=== PATIENT | male | born 1965 | race American Indian/Alaskan Native ===

== ENCOUNTER 2018-06-24 14:49 | Observation (INO) | payer OTHER ==
[2018-06-24 15:35] LABS: Basophils # (Auto) 0.1 K/mm3 (0.0-0.1); Basophils % (Auto) 0.9 % (0.0-1.8); Eosinophils # (Auto) 0.2 K/mm3 (0.0-0.4); Eosinophils % (Auto) 2.3 % (0.0-4.3); Hematocrit 39.8 % (35.5-45.6); Hemoglobin 13.3 gm/dl (11.8-15.2); Lymphocytes # (Auto) 1.7 K/mm3 (1.2-5.4); Lymphocytes % (Auto) 23.1 % (13.4-35.0); Mean Corpuscular HGB Conc 33 % (32-34); Mean Corpuscular Hemoglobin 32 pg (28-32); Mean Corpuscular Volume 96 fl (84-94); Monocytes # (Auto) 0.8 K/mm3 (0.0-0.8); Monocytes % (Auto) 10.3 % (0.0-7.3); Platelet Count 127 K/mm3 (140-440); Red Blood Count 4.14 M/mm3 (3.65-5.03); Red Cell Distribution Width 13.4 % (13.2-15.2)
[2018-06-24 15:43] LABS: INR 0.93 (0.87-1.13)
[2018-06-24 15:44] LABS: Partial Thromboplastin Time 27.2 Sec. (24.2-36.6)
[2018-06-24 15:45] LABS: BUN/Creatinine Ratio 21; Blood Urea Nitrogen 25 mg/dL (9-20); Calcium 9.2 mg/dL (8.4-10.2); Hemolysis Index 0
[2018-06-24] MEDS ORDERED: BABY ASPIRIN PO ONE (17:04)
[2018-06-24] MEDS ORDERED: ZOFRAN IV ONE (17:04)
[2018-06-24] MEDS ORDERED: MORPHINE IV ONE (17:04)
--- NOTE | 2018-06-24 17:09 | Emergency Department Report ---
Blank Doc - Documentation Documentation: Patient is 52 years old male with history of chronic lymphocytic leukemia status post stem cell transplant in 2014, history of pericarditis. Patient presented to the ER complaining of substernal chest pain started last night, he described his pain as dull aching increase with taking a deep breath. EKG showed bigeminy. Differential diagnoses include acute coronary syndrome, pulmonary embolism, pericarditis. Patient will be best served in our main ED.
--- NOTE | 2018-06-24 18:02 | XRay Report ---
FINAL REPORT EXAM: XR CHEST ROUTINE 2V HISTORY: chest pain TECHNIQUE: Frontal and lateral chest radiographs. PRIORS: None. FINDINGS: The cardiomediastinal silhouette is normal. No focal consolidation. No pleural effusion. No pneumothorax. No acute osseous abnormality. IMPRESSION: No acute cardiopulmonary process.
[2018-06-24] MEDS ORDERED: NACL 0.9% 500 ML 500 ML IV ONE (21:27)
[2018-06-24] MEDS ORDERED: NITROSTAT SL PRN (21:27)
--- NOTE | 2018-06-24 21:41 | Emergency Department Report ---
ED Chest Pain HPI - General Chief Complaint: Chest Pain Stated Complaint: CHEST PAIN Time Seen by Provider: 06/24/18 17:00 Source: patient, RN notes reviewed Mode of arrival: Ambulatory Limitations: No Limitations - History of Present Illness Initial Comments: This is a 52-year-old male who is unknown to this provider previously. Primary care DrMaria Eugenia: Rianna David Oncology: Dr. Tres rodriguez Past medical history includes leukemia, pericarditis, stem cell transplant, currently on immune modulating therapy. Patient presents to the ER with complaint of central chest pain, which has been present for 3 days, he reports the pain does not radiate to the back, arms or neck, there is no vomiting, diaphoresis, shortness of breath. He reports the pain increases with deep breathing and leaning forward, and laying down. He denies leg swelling, leg pain, recent travel, cocaine, aspirin, and he indicates that his father had heart disease in his late 50s. MD Complaint: chest pain -: Gradual Onset: during rest Pain Location: substernal Pain Radiation: none Severity: mild Severity scale (0 -10): 7 Quality: tightness Consistency: intermittent Improves With: rest Worsens With: inspiration re: denies: nausea, vomting, diaphoresis, dyspnea, sense of impending doom Aspirin use within the Past 7 Days: (0) No - Related Data On Oral Contraceptives: No Previous Rx's Medication Instructions Recorded Last Taken Type Acetaminophen [Tylenol Arthritis] 650 mg PO Q6HR PRN #30 tablet.er 06/25/18 Unknown Rx Aspirin [Aspirin BABY CHEW TAB] 81 mg PO QDAY #30 tab.chew 06/25/18 Unknown Rx Allergies Allergy/AdvReac Type Severity Reaction Status Date / Time chloroquine Allergy Hives Verified 06/24/18 15:04 Sulfa (Sulfonamide Allergy Rash Verified 06/24/18 15:04 Antibiotics) Heart Score - HEART Score History: Slightly suspicious EKG: Non-specific Age: 45-65 Risk factors: 1-2 risk factors Troponin: < normal limit HEART Score: 3 - Critical Actions Critical Actions: 0-3 pts:0.9-1.7%risk of adverse cardiac event.Candidate for discharge ED Review of Systems ROS: Stated complaint: CHEST PAIN Other details as noted in HPI Constitutional: denies: diaphoresis Eyes: denies: eye discharge ENT: denies: epistaxis Respiratory: denies: shortness of breath Cardiovascular: chest pain Gastrointestinal: denies: vomiting Genitourinary: as per HPI Musculoskeletal: as per HPI. denies: back pain Skin: denies: lesions Neurological: denies: weakness Psychiatric: anxiety ED Past Medical Hx - Past Medical History Previous Medical History?: Yes Hx of Cancer: Yes (leukemia tx w/chemo, remission 01/2018) Additional medical history: pericarditis 2013 - Surgical History Past Surgical History?: Yes Additional Surgical History: stem cell transplant 08/31/2014 - Social History Smoking Status: Never Smoker Substance Use Type: Alcohol - Medications Home Medications: Home Medications Medication Instructions Recorded Confirmed Last Taken Type Acetaminophen [Tylenol Arthritis] 650 mg PO Q6HR PRN #30 tablet.er 06/25/18 Unknown Rx Aspirin [Aspirin BABY CHEW TAB] 81 mg PO QDAY #30 tab.chew 06/25/18 Unknown Rx ED Physical Exam - General Limitations: No Limitations General appearance: alert, in no apparent distress - Head Head exam: Present: atraumatic, normocephalic - Eye Eye exam: Present: normal appearance, EOMI. Absent: nystagmus - ENT ENT exam: Present: normal exam, normal orophraynx, mucous membranes moist, normal external ear exam - Neck Neck exam: Present: normal inspection - Respiratory Respiratory exam: Present: normal lung sounds bilaterally. Absent: respiratory distress - Cardiovascular Cardiovascular Exam: Present: regular rate, normal rhythm, normal heart sounds. Absent: bradycardia, tachycardia, irregular rhythm, systolic murmur, diastolic murmur, rubs, gallop - GI/Abdominal GI/Abdominal exam: Present: soft, normal bowel sounds, other (there is no right upper quadrant tenderness. There is a negative Solis sign. There is negative Rovsing sign.). Absent: distended, tenderness, guarding, rebound, rigid, pulsatile mass - Rectal Rectal exam: Present: deferred - Extremities Exam Extremities exam: Present: normal inspection (2+ pulses noted in the bilateral upper, lower extremities. Compartments soft. No long bony tenderness. The pelvis is stable.), full ROM, normal capillary refill, other (there is no palpable cord. This is negative Homans sign.). Absent: pedal edema, joint swelling, calf tenderness - Back Exam Back exam: Present: normal inspection, full ROM. Absent: tenderness, CVA tenderness (R), paraspinal tenderness, vertebral tenderness - Neurological Exam Neurological exam: Present: alert, oriented X3, CN II-XII intact, normal gait, other (Extraocular movements intact. Tongue midline. No facial droop. Facial sensation intact to light touch in the V1, V2, V3 distribution bilaterally. 5 and 5 strength in 4 extremities.. Sensation is intact to light touch in 4 extremities.). Absent: motor sensory deficit - Psychiatric Psychiatric exam: Present: normal affect, normal mood - Skin Skin exam: Present: warm, dry, intact, normal color. Absent: rash ED Course Vital Signs 06/24/18 06/24/18 06/25/18 15:04 21:10 00:05 Temperature 99.6 F Pulse Rate 55 L 68 57 L Respiratory 18 17 17 Rate Blood Pressure 131/71 Blood Pressure 141/65 [Right] O2 Sat by Pulse 99 99 99 Oximetry 06/25/18 06/25/18 06/25/18 00:41 00:43 01:38 Temperature 99.6 F Pulse Rate 56 L 69 Respiratory 20 Rate Blood Pressure 141/65 Blood Pressure 112/63 [Right] O2 Sat by Pulse 96 Oximetry - Reevaluation(s) Reevaluation #1: 06/25/18 01:38 Patient has now changed his mind, has been having shaking chills, rectal temperature has been requested, and patient request to be admitted for cardiac risk stratification. Patient's did not feel comfortable going home to follow-up. The Hospital physician is paged to arrange admission. Reevaluation #2: 06/25/18 02:00 Dr Yuki Negron accepts to the medical service for cardiac risk stratification TOMI score - Tomi Score Age > 65: (0) No Aspirin use within the Past 7 Days: (0) No 3 or more CAD Risk Factors: (0) No 2 or more Angina events in past 24 hrs: (0) No Known CAD with more than 50% Stenosis: (0) No Elevated Cardiac Markers: (0) No ST Deviation Greater than 0.5mm: (0) No TOMI Score: 0 ED Medical Decision Making - Lab Data Result diagrams: 06/24/18 15:17 06/24/18 15:17 Vital Signs 06/24/18 15:04 Temperature 99.6 F Pulse Rate 55 L Respiratory 18 Rate Blood Pressure 131/71 O2 Sat by Pulse 99 Oximetry Lab Results 06/24/18 06/24/18 06/24/18 Range/Units 15:17 15:17 15:17 WBC 7.4 (4.5-11.0) K/mm3 RBC 4.14 (3.65-5.03) M/mm3 Hgb 13.3 (11.8-15.2) gm/dl Hct 39.8 (35.5-45.6) % MCV 96 H (84-94) fl MCH 32 (28-32) pg MCHC 33 (32-34) % RDW 13.4 (13.2-15.2) % Plt Count 127 L (140-440) K/mm3 Lymph % (Auto) 23.1 (13.4-35.0) % [place] % (Auto) 10.3 H (0.0-7.3) % Eos % (Auto) 2.3 (0.0-4.3) % Baso % (Auto) 0.9 (0.0-1.8) % Lymph # 1.7 (1.2-5.4) K/mm3 [place] # 0.8 (0.0-0.8) K/mm3 Eos # 0.2 (0.0-0.4) K/mm3 Baso # 0.1 (0.0-0.1) K/mm3 Seg Neutrophils % 63.4 (40.0-70.0) % Seg Neutrophils # 4.7 (1.8-7.7) K/mm3 PT 12.9 (12.2-14.9) Sec. INR 0.93 (0.87-1.13) APTT 27.2 (24.2-36.6) Sec. D-Dimer (0-234) ng/mlDDU Sodium 139 (137-145) mmol/L Potassium 4.8 (3.6-5.0) mmol/L Chloride 98.4 (98-107) mmol/L Carbon Dioxide 29 (22-30) mmol/L Anion Gap 16 mmol/L BUN 25 H (9-20) mg/dL Creatinine 1.2 (0.8-1.5) mg/dL Estimated GFR > 60 ml/min BUN/Creatinine Ratio 21 % Glucose 87 (75-100) mg/dL Calcium 9.2 (8.4-10.2) mg/dL Troponin T < 0.010 (0.00-0.029) ng/mL NT-Pro-B Natriuret Pep (0-900) pg/mL 06/24/18 06/24/18 06/24/18 Range/Units 15:17 15:17 19:22 WBC (4.5-11.0) K/mm3 RBC (3.65-5.03) M/mm3 Hgb (11.8-15.2) gm/dl Hct (35.5-45.6) % MCV (84-94) fl MCH (28-32) pg MCHC (32-34) % RDW (13.2-15.2) % Plt Count (140-440) K/mm3 Lymph % (Auto) (13.4-35.0) % [place] % (Auto) (0.0-7.3) % Eos % (Auto) (0.0-4.3) % Baso % (Auto) (0.0-1.8) % Lymph # (1.2-5.4) K/mm3 [place] # (0.0-0.8) K/mm3 Eos # (0.0-0.4) K/mm3 Baso # (0.0-0.1) K/mm3 Seg Neutrophils % (40.0-70.0) % Seg Neutrophils # (1.8-7.7) K/mm3 PT (12.2-14.9) Sec. INR (0.87-1.13) APTT (24.2-36.6) Sec. D-Dimer 240.73 H (0-234) ng/mlDDU Sodium (137-145) mmol/L Potassium (3.6-5.0) mmol/L Chloride (98-107) mmol/L Carbon Dioxide (22-30) mmol/L Anion Gap mmol/L BUN (9-20) mg/dL Creatinine (0.8-1.5) mg/dL Estimated GFR ml/min BUN/Creatinine Ratio % Glucose (75-100) mg/dL Calcium (8.4-10.2) mg/dL Troponin T < 0.010 (0.00-0.029) ng/mL NT-Pro-B Natriuret Pep 85.84 (0-900) pg/mL 07/24/18 Range/Units 22:44 WBC (4.5-11.0) K/mm3 RBC (3.65-5.03) M/mm3 Hgb (11.8-15.2) gm/dl Hct (35.5-45.6) % MCV (84-94) fl MCH (28-32) pg MCHC (32-34) % RDW (13.2-15.2) % Plt Count (140-440) K/mm3 Lymph % (Auto) (13.4-35.0) % [place] % (Auto) (0.0-7.3) % Eos % (Auto) (0.0-4.3) % Baso % (Auto) (0.0-1.8) % Lymph # (1.2-5.4) K/mm3 [place] # (0.0-0.8) K/mm3 Eos # (0.0-0.4) K/mm3 Baso # (0.0-0.1) K/mm3 Seg Neutrophils % (40.0-70.0) % Seg Neutrophils # (1.8-7.7) K/mm3 PT (12.2-14.9) Sec. INR (0.87-1.13) APTT (24.2-36.6) Sec. D-Dimer (0-234) ng/mlDDU Sodium (137-145) mmol/L Potassium (3.6-5.0) mmol/L Chloride (98-107) mmol/L Carbon Dioxide (22-30) mmol/L Anion Gap mmol/L BUN (9-20) mg/dL Creatinine (0.8-1.5) mg/dL Estimated GFR ml/min BUN/Creatinine Ratio % Glucose (75-100) mg/dL Calcium (8.4-10.2) mg/dL Troponin T < 0.010 (0.00-0.029) ng/mL NT-Pro-B Natriuret Pep (0-900) pg/mL - EKG Data -: EKG Interpreted by [place] - EKG Data When compared to previous EKG there are: previous EKG unavailable 06/25/18 01:07 EKG #1 shows sinus bradycardia, 57 bpm, premature ventricular contraction, normal axis, normal intervals, not a STEMI. EKG #2 appears to be unchanged, shows sinus bradycardia. EKG #3 is unchanged, shows high left ventricular voltage. - Radiology Data Radiology results: report reviewed, image reviewed Print Report Referring Physician: RALPH MALIK Patient Name: INOCENCIO HANSEN Date of : 1965 Sex: Male Report Date: 2018-06-24 Report Status: Finalized Findings [facility] [address] [place] [address] Cat Scan Report Signed Patient: INOCENCIO HE MR#: [id number] : 1965 Acct:[id number] Age/Sex: 52 / M ADM Date: 06/24/18 Loc: ED Attending Dr: Ordering Physician: RALPH MALIK MD Date of Service: 06/24/18 Procedure(s): CT angio chest Accession Number(s): [id number] cc: RALPH MALIK MD FINAL REPORT PROCEDURE: CT ANGIO CHEST TECHNIQUE: Computerized tomographic angiography of the chest was performed during the IV injection of iodinated nonionic contrast including image processing. The image data was postprocessed using 2-dimensional multiplanar reformatted (MPR) and 3-dimensional (MIP and/or volume rendered) techniques. HISTORY: cp sob. Evaluate pulmonary embolus. COMPARISON: No prior studies are available for comparison. FINDINGS: Pulmonary outflow tract, right and left main pulmonary arteries and their proximal branches: Clear, no filling defects seen to suggest pulmonary embolus. Pericardium: No evidence of pericardial effusion. Thoracic aorta: No evidence of aneurysmal dilatation or dissection. Coronary arteries: Are unremarkable. Mediastinum and hilar regions: Nonspecific subcentimeter lymph nodes are visualized. No pathologically enlarged lymph nodes or masses are identified. Lung Mccarthy: Small amount of patchy alveolar density present in the posterior costophrenic angles. There also slight asymmetry with increased density anterior medially in the left lung base. No dense consolidations effusions or masses are seen. Upper abdomen: Several moderate to large gallstones are seen within the gallbladder. These are noncalcified. Cholesterol gallstones are suspected. The upper abdomen is otherwise unremarkable. Other: No acute bony abnormalities are visualized. IMPRESSION: No evidence of pulmonary embolus. Small amount of basilar atelectasis suspected. No dense consolidations are seen. This is mildly asymmetric with slightly greater density also visualized anterior medially in the left lower lobe inferior to the left hilum. Subsegmental infiltrate needs clinical exclusion. Cholelithiasis. Moderate to large gallstones visualized within the gallbladder. Transcribed By: URSULA Dictated By: MIKAYLA DELAROSA MD Electronically Authenticated By: MIKAYLA DELAROSA MD Signed Date/Time: 06/24/182302 DD/ 02 - Medical Decision Making Differential diagnosis, including but not limited to: Acute coronary syndrome, pericarditis, myocarditis, pleuritis, pneumonia, pulmonary embolus Assessment and plan: 52-year-old male with chest pain that is primarily pleuritic and positional. Low risk by well's criteria, d-dimer elevated, CT scan of the chest is negative for pneumonia, pneumothorax, pulmonary embolus. There is no right upper quadrant tenderness, CT scan showed gallbladder stones which are asymptomatic and likely incidental. Troponin is negative multiple times, EKG essentially unremarkable 3 without evidence of STEMI. Patient is at low risk for major adverse cardiac event. I had an extensive discussion with the patient regarding the various options for cardiac risk stratification. I offer the patient hospital admission if he felt like it to get a nuclear stress test or exercise stress test, however I did also indicate that it would be reasonable to follow up with outpatient cardiology within the next couple days to complete his risk stratification. The patient endorses that he must refers to follow-up as an outpatient, and indicates that he is reliable to follow-up as an outpatient. He understands this risk for major adverse cardiac event at this time. Through shared decision making, we agreed to have the patient closely follow up as outpatient with local cardiology to complete his cardiac risk stratification. Critical care attestation.: If time is entered above; I have spent that time in minutes in the direct care of this critically ill patient, excluding procedure time. ED Disposition Clinical Impression: Chest pain Disposition: 09 OP ADMIT IP TO THIS HOSP Is pt being admited?: Yes Does the pt Need Aspirin: Yes Condition: Good Instructions: Chest Pain (ED) Additional Instructions: Take the pain medication as needed/directed. Follow up with any of the local listed cardiology groups within the next 3-4 days to have an outpatient stress test/outpatient cardiology evaluation. Return to the ER right away with new pain, worsened pain, migration of pain, projectile vomiting, change in mental status, confusion, inability to tolerate liquids. Prescriptions: Acetaminophen [Tylenol Arthritis] 650 mg PO Q6HR PRN #30 tablet.er PRN Reason: Pain Aspirin [Aspirin BABY CHEW TAB] 81 mg PO QDAY #30 tab.chew Referrals: PRIMARY CARE, [Primary Care Provider] - 3-5 Days [facility] [Provider Group] - 3-5 Days [facility] [Provider Group] - 3-5 Days
--- NOTE | 2018-06-24 23:08 | Cat Scan Report ---
FINAL REPORT PROCEDURE: CT ANGIO CHEST TECHNIQUE: Computerized tomographic angiography of the chest was performed during the IV injection of iodinated nonionic contrast including image processing. The image data was postprocessed using 2-dimensional multiplanar reformatted (MPR) and 3-dimensional (MIP and/or volume rendered) techniques. HISTORY: cp sob. Evaluate pulmonary embolus. COMPARISON: No prior studies are available for comparison. FINDINGS: Pulmonary outflow tract, right and left main pulmonary arteries and their proximal branches: Clear, no filling defects seen to suggest pulmonary embolus. Pericardium: No evidence of pericardial effusion. Thoracic aorta: No evidence of aneurysmal dilatation or dissection. Coronary arteries: Are unremarkable. Mediastinum and hilar regions: Nonspecific subcentimeter lymph nodes are visualized. No pathologically enlarged lymph nodes or masses are identified. Lung Mccarthy: Small amount of patchy alveolar density present in the posterior costophrenic angles. There also slight asymmetry with increased density anterior medially in the left lung base. No dense consolidations effusions or masses are seen. Upper abdomen: Several moderate to large gallstones are seen within the gallbladder. These are noncalcified. Cholesterol gallstones are suspected. The upper abdomen is otherwise unremarkable. Other: No acute bony abnormalities are visualized. IMPRESSION: No evidence of pulmonary embolus. Small amount of basilar atelectasis suspected. No dense consolidations are seen. This is mildly asymmetric with slightly greater density also visualized anterior medially in the left lower lobe inferior to the left hilum. Subsegmental infiltrate needs clinical exclusion. Cholelithiasis. Moderate to large gallstones visualized within the gallbladder.
[2018-06-25] MEDS ORDERED: TYLENOL ONE (01:28)
[2018-06-25] MEDS ORDERED: TYLENOL PO ONE (01:49)
[2018-06-25] MEDS ORDERED: MORPHINE IV PRN (02:44)
[2018-06-25] MEDS ORDERED: ZOFRAN IV PRN (02:46)
[2018-06-25] MEDS: NITRO-BID 2% TP SCH ×2 (03:00→11:20)
--- NOTE | 2018-06-25 04:50 | History and Physical Report ---
CHIEF COMPLAINT: Chest pain. HISTORY OF PRESENT ILLNESS: The patient is a 52-year-old male, who has been having retrosternal and precordial chest pain going on for about 3 days. The patient said the pain does not radiate, but is associated with shortness of breath and some chills. There is no history of nausea and vomiting. No history of dizziness, numbness, or diaphoresis. The patient's pain is relieved with pain medication. The patient states that he had leukemia and had stem cell transplant done at [place] and currently on immunomodulating therapy. The patient said that he has also had pericarditis with different kind of pain that is not like what he is having currently. PAST MEDICAL HISTORY: Pertinent for leukemia, pericarditis. PAST SURGICAL HISTORY: Involves stem cell transplant FAMILY HISTORY: Noncontributory. SOCIAL HISTORY: The patient lives with family. Does not smoke, does not drink alcohol, or does not use illicit drugs. MEDICATIONS: The patient is on Tylenol 650 mg by mouth every 6 hours for fever and headache and pain and also on aspirin 81 mg by mouth daily. ALLERGIES: THE PATIENT IS ALLERGIC TO CHLOROQUINE, SULFA DRUGS. REVIEW OF SYSTEMS: CONSTITUTIONAL: There is no fever, no chills, no diaphoresis. HEENT: No headache or sore throat. CARDIOVASCULAR SYSTEM: Chest pain is present. No orthopnea. RESPIRATORY SYSTEM: Shortness of breath is present with no cough. GASTROINTESTINAL SYSTEM: There is no nausea, no vomiting, no abdominal pain, diarrhea, or constipation. NEUROLOGICAL SYSTEM: There is no numbness, no dizziness, no altered mental status. MUSCULOSKELETAL SYSTEM: There is no joint pain or swelling. DERMATOLOGICAL SYSTEM: There is no skin rash or itching. GENITOURINARY SYSTEM: There is no dysuria, hematuria, or flank pain. Rest of system review is normal. PHYSICAL EXAMINATION: GENERAL: At the time of exam, the patient was found to be alert, oriented x 3, and not in acute distress. VITAL SIGNS: At the time of initial presentation show temperature of 99.6, pulse of 55, respirations 18, blood pressure 131/71, O2 sat of 99% on room air. HEENT: Shows pupils to be equal, round, reactive to light and accommodation. Extraocular muscles are intact. NECK: Supple with no JVD or carotid bruit. CARDIOVASCULAR SYSTEM: Show normal first and second heart sounds with no gallops or murmurs. RESPIRATORY SYSTEM: Show good air entry on both sides of the lungs with no abnormal breath sounds. GASTROINTESTINAL SYSTEM: Show abdomen to be full, soft, nontender with no organomegaly or rigidity. NEUROLOGIC: Shows no focal deficit. MUSCULOSKELETAL SYSTEM: Show no joint swelling or tenderness. DERMATOLOGICAL SYSTEM: Showing no skin rash. GENITOURINARY SYSTEM: Showing no costovertebral angle tenderness. PERTINENT LABORATORY DATA AND IMAGING STUDIES: The patient has CBC done with normal WBC, normal hemoglobin, and normal hematocrit with low platelet of 127,000 and CBC differential shows elevated monocyte count of 10.3%. The patient's coagulation studies showed a slight increase in D-dimer of 240 and patient's chemistry was unremarkable. Cardiac enzymes came back normal. Brain natriuretic peptide level was normal. IMAGING STUDIES: The patient had CT angiogram of the chest done which shows no evidence of pulmonary embolus, but there is finding of bibasilar atelectasis and also there is finding of cholelithiasis, which is moderate to large gallstones visualized within the gallbladder. The patient also had chest x-ray done that shows no acute cardiopulmonary process. DIAGNOSES: 1. Chest pain. 2. Gallstones. PLAN: 1. The patient will be admitted to telemetry. 2. The patient will have cardiac enzymes involving troponin, total CK, and CK-MB checked q.6 hours x2 more level. 3. The patient will remain n.p.o. for Lexiscan stress test in the morning. 4. The patient will be on aspirin 325 mg by mouth daily. 5. The patient will be on nitro paste 1 inch to anterior chest wall q.6 hours. Also, the patient will be on sublingual nitroglycerin 0.4 mg every 5 minutes as needed for chest pain. 6. The patient will be on IV morphine 2 mg every 5 minutes as needed for chest pain. 7. The patient will be on IV Zofran 4 mg every 8 hours as needed for nausea and vomiting. The patient will be on Tylenol 650 mg by mouth every 4 hours for fever and headache. 8. The patient will be on oxygen via nasal cannula at 2 liters per minute and we will have Lexiscan stress test done in the morning to rule out myocardial infarction and coronary artery disease. The patient will remain n.p.o. until the stress test is done. [facility]# [id number] OCN/NTS NELLD
[2018-06-25 06:03] LABS: Creatine Kinase MB < 1.0 ng/mL (0.0-4.0)
[2018-06-25] MEDS: TYLENOL PO PRN ×2 (06:56→11:20)
[2018-06-25] MEDS ORDERED: LEXISCAN IV ONE (08:58)
[2018-06-25] MEDS ORDERED: LEXISCAN IV NR (09:02)
--- NOTE | 2018-06-25 09:14 | Discharge Summary ---
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 Patient presented to the ER complaining of substernal chest pain started last night on discussion in the ED the patient went for CTA DUE TO FINDING OF ELEVATED D.DIMER AND ALTHOUGH WITH Low risk by well's criteria, d-dimer elevated, CT scan of the chest is negative for pneumonia, pneumothorax, pulmonary embolus. There is no right upper quadrant tenderness, CT scan showed gallbladder stones which are asymptomatic and likely incidental. Troponin is negative multiple times, EKG essentially unremarkable 3 without evidence of STEMI. admission despite decision to discharge was due to recurrent pain. Per patient the pain resolved with tylenol and was not similar to his pericarditis pain He proceeded to have a stress test Discharge diagnosis Atypical pleuritic chest pain CLL CHOLITHASIS Disposition: TO HOME OR SELFCARE Time spent for discharge: 35 mins Core Measure Documentation - Palliative Care Palliative Care/ Comfort Measures: Not Applicable - Core Measures Any of the following diagnoses?: none - VTE Discharge Requirements Deep Vein Thrombosis/Pulmonary Embolism Present on Admission: No Exam - Physical Exam Narrative exam: VITAL SIGNS: Reviewed. GENERAL: The patient appeared well nourished and normally developed. Vital signs as documented. HEAD: No signs of head trauma. EYES: Pupils are equal. Extraocular motions intact. EARS: Hearing grossly intact. MOUTH: Oropharynx is normal. NECK: No adenopathy, no JVD. CHEST: Chest with clear breath sounds bilaterally. No wheezes, rales, or rhonchi. CARDIAC: Regular rate and rhythm. S1 and S2, without murmurs, gallops, or rubs. VASCULAR: No Edema. Peripheral pulses normal and equal in all extremities. ABDOMEN: Soft, without detectable tenderness. No sign of distention. No rebound or guarding, and no masses palpated. Bowel Sounds normal. MUSCULOSKELETAL: Good range of motion of all major joints. Extremities without clubbing, cyanosis or edema. NEUROLOGIC EXAM: Alert and oriented x 3. No focal sensory or strength deficits. Speech normal. Follows commands. PSYCHIATRIC: Mood normal. SKIN: No rash or lesions. - Constitutional Vitals: Temp Pulse Resp BP Pulse Ox 99.6 F 59 L 15 104/52 93 06/25/18 01:38 06/25/18 05:15 06/25/18 04:40 06/25/18 04:40 06/25/18 04:40 Plan Activity: advance as tolerated, fall precautions Diet: per dietitian instruction Special Instructions: record daily BP diary Follow up with: [facility] [Provider Group] - 3-5 Days PRIMARY [facility]ARE, [Primary Care Provider] - 3-5 Days JUAN A GIVENS DO [Staff Physician] - 7 Days
[2018-06-25 09:45] VITALS: BP 104/52
[2018-06-25] MEDS ORDERED: ASPIRIN PO SCH (10:00)
[2018-06-25] MEDS ORDERED: HEPARIN SUB-Q SCH (10:00)
--- NOTE | 2018-06-25 10:14 | Treadmill Report ---
This is a treadmill's portion of the nuclear stress test. The patient exercised on Eligio protocol for 12 minutes. Resting heart rate was 55 beats per minute, blood pressure was 104/58. Peak heart rate was 143, which is 85% maximum predicted heart rate. Peak blood pressure of 140/90. The patient had no EKG changes suggestive of ischemia. Baseline EKG is sinus rhythm with nonspecific STTs. SUMMARY: 1. Negative treadmill EKG. 2. Excellent exercise capacity 12 minutes Eligio protocol. 3. No exaggerated BP response to exercise. 4. Nuclear imaging pending. JOB# [id number] JT/MOSES
--- NOTE | 2018-06-25 12:04 | Treadmill Report ---
NUCLEAR PERFUSION STUDY REASON FOR STUDY: Chest pain. IMAGING PROTOCOL: Single isotope used by Dr. Alvarado as single isotope protocol. IMAGING RESULTS: Normal cavity size from stress to rest. Normal distribution of radionuclide in the anterior, inferior, septal, and apical regions. SUMMARY: 1. Negative treadmill EKG. 2. Excellent exercise capacity 12 minutes Eligio protocol. 3. No exaggerated BP response to exercise. 4. There is normal rest and stress myocardial perfusion scan. No significant ischemia. No wall motion abnormality. Gated SPECT is 59%. [facility]# [id number] JT/NTS
== END 2018-06-25 15:34 | disposition home or self-care (01) ==
LOC: ED 14:49 → INTOOBSV 06-25 02:40 → 4A 06-25 02:40
PROVIDERS: ADMIT Internal Medicine; ATTEND Internal Medicine
DX: R07.89 Other chest pain (principal); K80.20 Calculus of gallbladder without cholecystitis without obstruction; Z85.6 Personal history of leukemia; Z94.84 Stem cells transplant status; Z72.89 Other problems related to lifestyle
CPT/HCPCS: 36415; 71046; 71275; 78452; 80048; 82550; 82553; 83880; 84484; 85025; 85379; 85610; 85730; 93005; 93010; 93017; 96374; 96375; 99285; A9502; G0378; J2270; J2405; J2785; J7040; Q9967; 96361